=== PATIENT | female | born 1980 | race Caucasian/White ===

== ENCOUNTER → 2021-07-16 | Outpatient (CLI) | payer SELFPAY ==
--- NOTE | 2021-07-16 10:17 | RAD_ITS ---
STUDY: X-RAY - LUMBAR SPINE REASON FOR EXAM: Female, 41 years old. LUMBAGO WITH SCIATICA TECHNIQUE: XR Spine Lumbar Comp W/ Bending Min 6 Views COMPARISON: None FINDINGS: Normal lumbar lordosis. There is no substantial scoliosis. There is a normal alignment of the vertebrae. Normal vertebral bodies and endplates. Normal disc space heights. The soft tissue structures are unremarkable. RAD/L/S Spine w Bend Min 6 Vw IMPRESSION: There are no acute findings. Electronically Signed: Fausto Peña MD at 16:46 EDT ,
== END | disposition home or self-care (01) ==
PROVIDERS: PCP Family Medicine
DX: M54.40 Lumbago with sciatica, unspecified side (principal)
CPT/HCPCS: 72114

== ENCOUNTER → 2022-03-10 | Outpatient (CLI) | payer OTHER, SELFPAY ==
--- NOTE | 2022-03-10 14:10 | EMB_PTH ---
PATIENT: SPARKLE SEVILLA LOC: [facility]#:[id number] AGE/SX: 41/F ROOM: RE03/10/[address]: ROBLES Mcgraw : 1980 BED: DIS: 03/10/2022 SPEC #: [id number] RECD: 03/11/22 10:00 STATUS: MANUELA FIGUEROA #: [id number] ZULY: 03/10/22 14:[address]: Iwona Mercado NP DEPT: SURGICAL PATHOLOGY RECD BY: Randall Brown ENTERED: 03/11/22 10:01 SP TYPE: ENDOM BX/C ELAINE DR: Dr. Eber Ayala DO Tissues: Endometrium, NOS Procedures: Surgery Specimen Level IV HEADER OPERATION: Endometrial biopsy PRE-OP DIAGNOSIS: Abnormal uterine bleeding TISSUE SUBMITTED: Endometrial tissue MICROSCOPIC DIAGNOSIS Endometrial biopsy: Dyssynchronous endometrium consisting of mixed proliferative and secretory endometrium. SJ:sal 03/12/2022 MICROSCOPIC DESCRIPTION Slides are reviewed. GROSS DESCRIPTION Received is one container labeled with the patient's name and not further designated. The specimen consists of multiple fragments of hemorrhagic soft tissue that in aggregate measure 3 x 2.5 x 0.3 cm. The specimen is totally submitted in one cassette. / SJ:sal 03/11/2022 TC:5 CPT: 26631
== END | disposition home or self-care (01) ==
LOC: LABSPEC 03-11 07:59
PROVIDERS: PCP Family Medicine; Referring Provider Nurse Practitioner Women's Health; Visit Provider Nurse Practitioner Women's Health
DX: N93.9 Abnormal uterine and vaginal bleeding, unspecified (principal)
CPT/HCPCS: 88305